=== PATIENT | female | born 1980 | race Caucasian/White ===

== ENCOUNTER 2020-12-20 11:12 | Emergency (ER) | payer OTHER ==
[~2020-12-20] VITALS: Ht 180.3 cm; Wt 83.6 kg
[2020-12-20 12:14] LABS: BASOPHILS % (AUTO) 1 % (0-1); EOSINOPHILS % (AUTO) 1 % (1-7); LYMPHOCYTES % (AUTO) 24 % (22-44); MEAN CORPUSCULAR HEMOGLOBIN 32.2 pg (27.0-34.8); MEAN CORPUSCULAR HGB CONC 34.4 g/dL (32.4-35.8); MEAN PLATELET VOLUME 8.5 fL (7.4-10.4); MONOCYTES % (AUTO) 12 % (2-9); NEUTROPHILS % (AUTO) 63 % (42-75); PLATELET COUNT 233 x10^3/uL (130-400); RED BLOOD COUNT 4.02 x10^6/uL (3.82-5.3); RED CELL DISTRIBUTION WIDTH 12.7 % (9.6-15.2)
[2020-12-20 12:17] LABS: MD NO
--- NOTE | 2020-12-20 12:17 | NUR ---
US AT BEDSIDE
[2020-12-20 12:26] LABS: ALBUMIN 3.9 g/dL (3.4-5.0); ANION GAP 5 mmol/L (5-15); CALCIUM 9.2 mg/dL (8.5-10.1); CHLORIDE 104 mmol/L (98-107); CREATININE 0.77 mg/dL (0.55-1.02)
[2020-12-20 13:16] VITALS: BP 124/81
--- NOTE | 2020-12-20 13:16 | NUR ---
ALL RESULTS ARE BACK AT THIS TIME. CHART UP FOR RECHECK.
--- NOTE | 2020-12-20 13:50 | NUR ---
ERMD AT BEDSIDE TO UPDATE PT ON POC.
== END 2020-12-20 14:02 | disposition home or self-care (01) ==
LOC: ED 13:45
DX: M79.622 Pain in left upper arm (principal); I89.0 Lymphedema, not elsewhere classified
CPT/HCPCS: 36415; 80048; 82040; 85025; 99285